=== PATIENT | female | born 1995 | race Caucasian/White ===

== ENCOUNTER 2017-02-06 13:34 | Emergency (ER) | payer MEDICAID ==
[~2017-02-06] VITALS: Ht 154.9 cm; Wt 65.0 kg
[~2017-02-06 13:34] MED LIST: DEPO150I IM; DICL50 PO
[2017-02-06 13:37] VITALS: BP 116/86; PULSE 84; RESP 16; TEMP 97.8; O2SAT 99
--- NOTE | 2017-02-06 13:58 | PD ---
HPI Chief Complaint: Musculoskeletal Complaint Time Seen by Provider: 13:58 Travel History International Travel<30 days: No Contact w/Intl Traveler<30days: No Traveled to known affect area: No History of Present Illness HPI 21-year-old female presents to emergency Department with complaint of continued right knee pain and swelling times a week and half to 2 weeks. Denies new or recent injury. Had an injury approximately 8 years ago to the same knee. Denies fever, vomiting. Denies paresthesias, loss of sensation, decreased range of motion, decreased strength to the affected extremity. Is ambulatory on the affected extremity. Has been wearing a knee brace and applying ice with good relief of symptoms. Has been taking naproxen with good relief of swelling , but not pain. Was seen a week ago at [facility] and an x-ray was done and the patient does not know what the results were. She is assuming they were negative because nobody told her about the x-ray and she was discharged with naproxen. Has no other medical complaints. Allergies to milk and pineapple. Has an established primary care provider to follow up with. No other modifying factors or associated signs and symptoms. PFSH Past Medical History Anxiety: Yes Immunizations Current: Yes Influenza Vaccination: Yes ?: Not LMP: 01/16/17 Social History Alcohol Use: Yes (on occasion) Tobacco Use: Yes (0.5 ppd) Substance Use: No Allergies-Medications (Allergen,Severity, Reaction): Coded Allergies: Pineapple (Verified Allergy, Intermediate, 04/03/14) Milk (Verified Allergy, Unknown, 04/03/14) Reported Meds & Prescriptions Reported Meds & Active Scripts Active Deltasone (Prednisone) 20 Mg Tab 40 Mg PO DAILY 5 Days Ibuprofen 800 Mg Tab 800 Mg PO Q6HR PRN Voltaren (Diclofenac Sodium) 50 Mg Tabec 50 Mg PO TID Reported Depo-Provera Contraceptive (Medroxyprogesterone Acetate) 150 Mg/Ml Susp 150 Mg IM Q90D Review of Systems Except as stated in HPI: all other systems reviewed are Neg Physical Exam Narrative GENERAL: Well-nourished, well-developed female patient, in no acute distress; afebrile, nontoxic-appearing SKIN: Warm and dry. HEAD: Atraumatic. Normocephalic. EYES: Pupils equal and round. No scleral icterus. No injection or drainage. ENT: Mucosa pink and moist. Airway patent. NECK: Trachea midline. CARDIOVASCULAR: Regular rate. RESPIRATORY: No accessory muscle use. GASTROINTESTINAL: Flat. MUSCULOSKELETAL: Right knee with very mild edema; nonerythematous, and without ecchymosis; full range of motion and flexion to 90; point tenderness to the medial and lateral aspect; joint stable with negative drawer test; no obvious deformity. Right Lower extremity is supple and non-tense with 2+ pedal pulse and sensory intact and without erythema or edema. Patient ambulatory. No obvious deformities. No edema. NEUROLOGICAL: Awake and alert. Oriented 3. No obvious cranial nerve deficits. Motor grossly within normal limits. Normal speech. PSYCHIATRIC: Appropriate mood and affect; insight and judgment normal. Data Data Last Documented VS Vital Signs Date Time Temp Pulse Resp B/P Pulse Ox O2 Delivery O2 Flow Rate FiO2 02/06/17 13:37 97.8 84 16 116/86 99 Orders Crutches (02/06/17 13:58) MDM Medical Decision Making Medical Screen Exam Complete: Yes Emergency Medical Condition: Yes Medical Record Reviewed: Yes Differential Diagnosis Bursitis, arthritis, knee strain, nonspecific knee pain Narrative Course 21-year-old female with right knee pain. Denies new or recent injury. She was seen a week ago and had an x-ray done at [facility] which the patient is assuming was negative because she was discharged with only naproxen. She has had continued knee pain and swelling. Patient is afebrile and nontoxic-appearing. Denies fever, vomiting. No signs of septic joint. I do not suspect fracture dislocation and feel that imaging is not necessary at this time. Crutches provided for support. Ibuprofen and Deltasone prescribed for home. Instructed patient to follow up with primary care provider and orthopedic. Patient verbalizes understanding and agreement with treatment plan. Patient is medically cleared and stable for discharge. Discussed reasons to return to the emergency department. Patient agrees with treatment plan. The patients vital signs are stable and the patient is stable for outpatient follow-up and treatment. Patient discharged home, stable and in no acute distress. Diagnosis Primary Impression: Right knee pain Qualified Code: M25.561 - Right knee pain, unspecified chronicity Referrals: Primary Care Physician Patient Instructions: General Instructions, Knee Pain (ED) Departure Forms: Tests/Procedures, Work Release Enter return to work date: Feb 07, 2017 Additional Instructions: Tylenol or ibuprofen as needed and as directed to reduce pain and inflammation Rest, ice, compress, and elevate extremity to decrease pain and inflammation Knee brace for support Crutches for support Avoid aggravating activity; increase activity as tolerated Follow-up with primary care provider Follow-up with orthopedic Return to the emergency department immediately with worsening symptoms Med/Other Pt SpecificInfo: Prescription(s) given Scripts Prednisone (Deltasone)20 Mg Tab40 Mg PO DAILY 5 Days Ref 0 Prov:Nevaeh Johnson 02/06/17 Ibuprofen 800 Mg Ldn195 Mg PO Q6HR PRN (PAIN) #30 TAB Ref 0 Prov:Nevaeh Johnson 02/06/17 Disposition: 01 DISCHARGE HOME Condition: Stable Nevaeh Johnson Feb 06, 2017 13:58
[2017-02-06] MEDS ORDERED: IBUP800T23 PO (14:00)
[2017-02-06] MEDS ORDERED: PRED-503 PO (14:00)
== END 2017-02-06 14:59 | disposition home or self-care (01) ==
LOC: NEPK 13:34
DX: M25.561 Pain in right knee (principal); Z72.0 Tobacco use
CPT/HCPCS: 99283; E0113

== ENCOUNTER 2017-12-30 04:35 | Emergency (ER) | payer SELFPAY ==
[~2017-12-30] VITALS: Ht 157.5 cm; Wt 68.0 kg
[~2017-12-30 04:35] MED LIST changes: +IBUP1TAB7 PO; +PRED-503 PO
[2017-12-30 04:41] VITALS: BP 99/64; PULSE 99; RESP 18; TEMP 98.1; O2SAT 99
[2017-12-30] MEDS ORDERED: SODIUM CHLOR 0.9% 1000 ML INJ 1,000 ML IV ONE (04:45)
[2017-12-30] MEDS ORDERED: ONDANSETRON HCL 4 MG/2 ML VIAL IV PUSH ONE (04:45)
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
[2017-12-30 07:53] VITALS: BP 90/47; PULSE 96; RESP 16; O2SAT 97
[2017-12-30 10:09] VITALS: BP 117/82
== END 2017-12-30 10:10 | disposition home or self-care (01) ==
LOC: NEPE 04:35
DX: F10.129 Alcohol abuse with intoxication, unspecified (principal); Y90.6 Blood alcohol level of 120-199 mg/100 ml; F41.9 Anxiety disorder, unspecified; F17.200 Nicotine dependence, unspecified, uncomplicated
CPT/HCPCS: 80307; 96361; 96374; 99284; J2405; J7030